=== PATIENT | female | born 1940 | race Caucasian/White ===

== ENCOUNTER 2017-09-08 10:43 | Emergency (ER) | payer OTHER ==
[2017-09-08 10:51] VITALS: BP 104/50; PULSE 62; TEMP 97.7; BMI 26.5
--- NOTE | 2017-09-08 13:06 | PDOC ---
History of Present Illness - General Chief Complaint: Pain, Acute Stated Complaint: NECK PAIN Time Seen by Provider: 09/08/17 12:12 History Source: Patient Exam Limitations: No Limitations - History of Present Illness Initial Comments: 09/08/17 13:50 77-year-old female presents to the ED with complaints of right neck pain for the past 3 months. Patient states pain is worsened with movement and it started getting physical therapy that was prescribed by her PCP but states symptoms have not been relieved along with medication for discomfort. Patient has no complaints of radiation of pain to her anterior neck, head, ear or mouth. Patient denies injury, swelling, or skin discoloration to area. Patient does state has a facelift 20 years ago with incisions around the ears Timing/Duration: intermittent, other (3 months) Severity: moderate Associated Symptoms: reports: denies symptoms Past History - Travel Traveled outside of the country in the last 30 days: No - Past Medical History Allergies/Adverse Reactions: Allergies Allergy/AdvReac Type Severity Reaction Status Date / Time Penicillins Allergy Verified 09/08/17 10:51 Home Medications: Ambulatory Orders NK [No Known Home Medication] 09/08/17 COPD: No HTN: Yes Hypercholesterolemia: Yes - Surgical History Abdominal Surgery: (bladder lift) - Suicide/Smoking/Psychosocial Hx Smoking History: Never smoked Information on smoking cessation initiated: No Hx Alcohol Use: No Drug/Substance Use Hx: No Substance Use Type: None Patient Lives Alone: No Lives with/in: spouse/SO Review of Systems - Review of Systems Able to Perform ROS?: Yes Constitutional: No: Symptoms Reported Respiratory: No: Symptoms reported Musculoskeletal: Yes: Muscle Pain (right neck), Neck Pain Integumentary: No: Symptoms Reported Neurological: No: Symptoms reported *Physical Exam - Vital Signs Last Vital Signs Temp Pulse Resp BP Pulse Ox 97.7 F 62 18 104/50 98 09/08/17 10:48 09/08/17 10:48 09/08/17 10:48 09/08/17 10:48 09/08/17 10:48 - Physical Exam General Appearance: Yes: Nourished, Appropriately Dressed. No: Apparent Distress HEENT: positive: EOMI, GARRETT, TMs Normal, Pharynx Normal. negative: Pale Conjunctivae Neck: positive: Tender (right postauricular and upper trapezius), Normal Thyroid, Supple. negative: Decreased range of motion Respiratory/Chest: positive: Lungs Clear, Normal Breath Sounds. negative: Chest Tender, Respiratory Distress, Accessory Muscle Use Integumentary: positive: Normal Color, Warm, Moist, Other (healed scars to postauricular) Neurologic: positive: Motor Strength 5/5 (ambulatory) ED Treatment Course - RADIOLOGY Radiology Studies Ordered: Category Date Time Status NECK SOFT TISSUE [RAD] Stat Radiology 09/08/17 12:32 Ordered Medical Decision Making - Medical Decision Making 09/08/17 13:54 Patient with intermittent but worsening right neck pain despite taking medication receiving physical therapy. Patient states had imaging done by her PCP and is requesting an x-ray today. Patient exam did have right postauricular and right upper trapezius discomfort with no limited range of motion skin discoloration, or edema . Ordered patient for a soft tissue of the neck. 09/08/17 14:39 neck soft tissue xray intact with noted djd. *DC/Admit/Observation/Transfer Diagnosis at time of Disposition: Degenerative joint disease - Referrals Referrals: STAFF,NOT ON [Primary Care Provider] - - Patient Instructions Printed Discharge Instructions: DI for Neck Pain Additional Instructions: Please apply heat to area and follow up with your pmd. May take motrin for pain. - Post Discharge Activity
[2017-09-08] MEDS ORDERED: IBUPROFEN 600 MG TABLET (FP) PO ONE (13:50)
[2017-09-08] MEDS ORDERED: IBUPROFEN 400 MG TABLET (FP) PO ONE (13:51)
== END 2017-09-08 14:47 | disposition home or self-care (01) ==
LOC: JERFT 10:43
DX: M47.892 Other spondylosis, cervical region (principal); I10 Essential (primary) hypertension; E78.00 Pure hypercholesterolemia, unspecified
CPT/HCPCS: 70360-TC; 99281-25